=== PATIENT | female | born 1970 | race Two or more races ===

== ENCOUNTER 2024-05-06 01:44 | Inpatient (IN) | payer OTHER ==
[~2024-05-06] VITALS: Ht 167.6 cm; Wt 56.7 kg
--- NOTE | 2024-05-06 02:14 | NUR ---
SE RECIBE PTE FEMENIAN DE 53 ANOS ALERTA Y ORIENTADA X3 QUIEN AL MOMENTO REFIER DOLOR ABDOMINAL EN LOS 4 CUADRANTES Y DOLOR EN ESPALDA KESHA. PTE INDICA ELLEN VOMITADO EN VARIAS OCACIONES Y NO SABE CUANTAS VECES BOJORQUEZ SIDO. SE MONITOREAN S/V Y SE UBICA EN TRIAGE PEDIATRICO.
[2024-05-06] MEDS ORDERED: PROMETHAZINE HCL 50 MG/ML AMPUL IM STA (02:27)
[2024-05-06] MEDS ORDERED: MEPERIDINE HCL/PF 50 MG/ML VIAL IM STA (02:27)
[2024-05-06] MEDS ORDERED: 0.9 % SODIUM CHLORIDE 1,000 ML IV ONE (02:30)
[2024-05-06] MEDS ORDERED: PROMETHAZINE HCL 50 MG/ML AMPUL IM ONE (02:44)
[2024-05-06] MEDS ORDERED: FAMOTIDINE/PF 20 MG/2 ML VIAL IV PUSH STA (02:45)
--- NOTE | 2024-05-06 02:45 | NUR ---
PTE EVALAUDO POR MD CLEMENTS ORDENA TXM ED A PTE SE EDUCA A PTE SOBRE EL SMIO Y PTE REFIERE ETNDER. SE LLEVA ACABO ORDENES BAJO MEDIDAS ACEPTICAS, PTE PEND A RESULTADOS DE LABS.
[2024-05-06] MEDS ORDERED: FAMOTIDINE/PF 20 MG/2 ML VIAL ONE ×2 (02:57→17:15)
[2024-05-06 03:56] LABS: HEMATOCRIT 38.8 % (36.0-45.00); HEMOGLOBIN 13.1 g/dL (12.0-15.00); MEAN CORPUSCULAR HEMOGLOBIN 28.7 pg (27.00-32.0); MEAN CORPUSCULAR HGB CONC 33.8 g/dl (32.0-36.0); PLATELET COUNT 297 K/uL (150-450); RED BLOOD COUNT 4.56 M/uL (4.00-6.00); RED CELL DISTRIBUTION WIDTH 13.9 % (11.5-14.5)
[2024-05-06 04:10] LABS: ALBUMIN 4.1 gm/dL (3.4-5.0); BILIRUBIN TOTAL 0.56 mg/dL (0.3-1.2); BILIRUBIN,CONJUGATED 0.15 mg/dL (0.0-0.2); BILIRUBIN,UNCONJUGATED 0.41 mg/dL (0.0-0.6); CALCIUM 9.3 mg/dL (8.5-10.1); CREATININE SERUM 1.08 mg/dL (0.55-1.02); GFR 53.27; GLOBULINA 3.5 G/DL (2.4-3.5); POTASSIUM 4.08 mEq/L (3.5-5.1); TOTAL PROTEIN 7.6 gm/dL (6.4-8.2)
[2024-05-06 05:01] LABS: INR 1.01; PARTIAL THROMBOPLASTIN TIME 27.2 SECONDS (22.0-34.0); PROTHROMBIN TIME 10.6 SECONDS (9.0-11.5)
[2024-05-06 05:05] LABS: URINE BACTERIA 949.9 uL (0.0-1933); URINE EPITHELIAL CELLS 33.8 uL (0.0-38.8); URINE RBC 3.5 uL (0.0-20.8); URINE WBC 21.4 uL (0.0-23.2)
[2024-05-06 05:06] LABS: PH,URINE 8.5 (5.0-8.0); URINE APPEARANCE Cloudy; URINE BILIRRUBIN Negative (NEGATIVE); URINE BLOOD Negative; URINE COLOR Yellow; URINE GLUCOSE Negative (NEGATIVE); URINE LEUKOCYTE Trace; URINE NITRATE Negative; URINE PROTEIN 30 (NEGATIVE)
--- NOTE | 2024-05-06 08:09 | NUR ---
SE RECIBE PTE ALERTA Y ORIENTADA X3. SE TRASLADA DE TRIAGE PED A SILVIA 06. SE OBSERVA CON BUEN PATRON RESPIRATORIO. CANALIZACION PATENTE, YAYA DE EDEMA Y ERITEMA, RECIBIENDO IV FLUIDS. PEND REEVALUACION MEDICA
[2024-05-06] MEDS ORDERED: PROMETHAZINE HCL 25 MG/ML AMPUL IM PRN (08:45)
[2024-05-06] MEDS ORDERED: PIPERACILLIN/TAZOBACTAM SODIUM 3.375 GM VIAL IV ONE ×2 (08:45→09:21)
[2024-05-06] MEDS ORDERED: MEPERIDINE HCL/PF 50 MG/ML VIAL IM PRN (08:45)
[2024-05-06] MEDS ORDERED: PROMETHAZINE HCL 25 MG/ML AMPUL ONE (09:19)
[2024-05-06] MEDS ORDERED: 0.9 % SODIUM CHLORIDE 1,000 ML IV SCH (13:45)
[2024-05-06] MEDS ORDERED: ONDANSETRON HCL 4 MG in 0.9 % SODIUM CHLORIDE 50 ML IV PRN (13:45)
[2024-05-06] MEDS ORDERED: CIPROFLOXACIN IN 5 % DEXTROSE 200 ML IV SCH (13:47)
[2024-05-06] MEDS ORDERED: FAMOTIDINE/PF 20 MG in 0.9 % SODIUM CHLORIDE 100 ML IV SCH (13:48)
[2024-05-06] MEDS ORDERED: MORPHINE SULFATE 2 MG/ML CARTRIDGE IV PRN (14:00)
[2024-05-06] MEDS ORDERED: METRONIDAZOLE/SODIUM CHLORIDE 100 ML IV SCH (17:00)
[2024-05-06] MEDS ORDERED: CIPROFLOXACIN IN 5 % DEXTROSE 400 MG/200 ML PIGGYBAG IV ONE (17:15)
[2024-05-06] MEDS ORDERED: METRONIDAZOLE/SODIUM CHLORIDE 500 MG/100 ML PIGGYBACK IV ONE (17:15)
[2024-05-06 18:05] LABS: ALBUMIN 3.6 gm/dL (3.4-5.0); CALCIUM 8.3 mg/dL (8.5-10.1); CREATININE SERUM 0.77 mg/dL (0.55-1.02); GFR 78.72; PHOSPHOROUS 4.2 mg/dL (2.5-4.9); POTASSIUM 4.36 mEq/L (3.5-5.1)
[2024-05-07] MEDS ORDERED: ACETAMINOPHEN 500 MG GEL..CAP PO PRN (16:45)
[2024-05-08] MEDS ORDERED: LORATADINE 10 MG TABLET PO NR (07:00)
[2024-05-08] MEDS ORDERED: SODIUM CHLORIDE FOR INHALATION 1 VIAL.NEB IH SCH (09:00)
[2024-05-08] MEDS ORDERED: ONDANSETRON HCL 2 MG/ML VIAL ONE (15:45)
[2024-05-08] MEDS ORDERED: METOCLOPRAMIDE HCL 5 MG/ML VIAL IV STA (18:39)
[2024-05-08] MEDS ORDERED: MEPERIDINE HCL/PF 25 MG/ML VIAL IM PRN (18:45)
[2024-05-09] MEDS ORDERED: METOCLOPRAMIDE HCL 5 MG/ML VIAL IV SCH (01:00)
== END 2024-05-10 11:12 | disposition home or self-care (01) | DRG 446 ==
LOC: ER 01:45 → SEC-K 15:09 → SURG 15:09
PROVIDERS: General Practice; ADMIT Internal Medicine; ATTEND Internal Medicine
PROC: BW40ZZZ Ultrasonography of Abdomen (ICD-10-PCS; principal; 2024-05-06)
DX: K80.00 Calculus of gallbladder with acute cholecystitis without obstruction (principal); E86.0 Dehydration

== ENCOUNTER 2024-07-01 06:21 | Day surgery (SDC) | payer OTHER ==
[2024-06-25 09:57] LABS: URINE APPEARANCE Cloudy; URINE BILIRRUBIN Negative (NEGATIVE); URINE BLOOD Negative; URINE COLOR Yellow; URINE GLUCOSE Negative (NEGATIVE); URINE KETONE Negative (NEGATIVE); URINE LEUKOCYTE Negative; URINE NITRATE Negative; URINE PROTEIN Negative (NEGATIVE); URINE UROBILINOGEN 0.2 E.U./dl
[2024-06-25 10:01] LABS: URINE BACTERIA 779.6 uL (0.0-1933); URINE EPITHELIAL CELLS 27.6 uL (0.0-38.8); URINE WBC 4.3 uL (0.0-23.2)
[2024-06-25 10:06] LABS: HEMATOCRIT 41.4 % (36.0-45.00); HEMOGLOBIN 13.8 g/dL (12.0-15.00); MEAN CELL VOLUME 87.1 fL (80.00-100.00); MEAN CORPUSCULAR HGB CONC 33.3 g/dl (32.0-36.0); PLATELET COUNT 402 K/uL (150-450); RED BLOOD COUNT 4.75 M/uL (4.00-6.00); RED CELL DISTRIBUTION WIDTH 14.8 % (11.5-14.5)
[2024-06-25 10:08] LABS: URINE CAST 0.15 uL (0.0-1.40); URINE RBC 1.5 uL (0.0-20.8)
[2024-06-25 10:22] LABS: PROTHROMBIN TIME 10.5 SECONDS (9.0-11.5)
[2024-06-25 10:29] LABS: ALBUMIN 3.9 gm/dL (3.4-5.0); BILIRUBIN TOTAL 0.48 mg/dL (0.3-1.2); CREATININE SERUM 0.76 mg/dL (0.55-1.02); GFR 79.91; GLOBULINA 3.6 G/DL (2.4-3.5); POTASSIUM 4.55 mEq/L (3.5-5.1); TOTAL PROTEIN 7.5 gm/dL (6.4-8.2)
[2024-07-01] MEDS ORDERED: CEFAZOLIN SODIUM 1,000 MG VIAL ONE (10:28)
[2024-07-01] MEDS ORDERED: LIDOCAINE HCL 1%/EPINEPHRINE 20ML VIAL IJ ONE (11:24)
[2024-07-01] MEDS ORDERED: BUPIVACAINE HCL/MPF 0.5% 30ML VIAL ONE (11:24)
[2024-07-01] MEDS ORDERED: MORPHINE SULFATE 4 MG/ML VIAL IV ONE (13:55)
== END 2024-07-01 17:45 | disposition home or self-care (01) ==
LOC: CIR.AMB 06:21
PROVIDERS: ATTEND Surgery
DX: K80.10 Calculus of gallbladder with chronic cholecystitis without obstruction (principal); J45.909 Unspecified asthma, uncomplicated; Z88.6 Allergy status to analgesic agent